=== PATIENT | male | born 1965 | race Caucasian/White ===

== ENCOUNTER 2019-03-16 08:50 | Day surgery (SDC) | payer MEDICAID ==
[~2019-03-16] VITALS: Ht 170.2 cm; Wt 105.0 kg
[~2019-03-16 08:50] MED LIST: SODIUM CHLORIDE 0.9% 1,000 ML ONE
[2019-03-16] MEDS ORDERED: SODIUM CHLORIDE 0.9% 1,000 ML IV ONE (09:00)
[2019-03-16] MEDS ORDERED: LIDOCAINE/PF 2% 5 ML VIAL INJ ONE (12:00)
[2019-03-16] MEDS ORDERED: PROPOFOL 1% 20 ML VIAL IVP ONE (12:00)
== END 2019-03-16 11:05 | disposition home or self-care (01) ==
LOC: SURGERY 08:50
PROVIDERS: ATTEND Internal Medicine Gastroenterology
DX: Z12.11 Encounter for screening for malignant neoplasm of colon (principal); K29.60 Other gastritis without bleeding; K44.9 Diaphragmatic hernia without obstruction or gangrene; K21.0 Gastro-esophageal reflux disease with esophagitis; B19.20 Unspecified viral hepatitis C without hepatic coma; E66.9 Obesity, unspecified; Z68.36 Body mass index [BMI] 36.0-36.9, adult; F43.10 Post-traumatic stress disorder, unspecified; Z87.19 Personal history of other diseases of the digestive system; Z98.49 Cataract extraction status, unspecified eye; F17.290 Nicotine dependence, other tobacco product, uncomplicated; Z79.899 Other long term (current) drug therapy
CPT/HCPCS: 45378; 43239; 88305; 88312; 88313; C1769; J2704; J3490; J7030

== ENCOUNTER 2020-02-24 15:41 | Emergency (ER) | payer MEDICAID ==
[~2020-02-24] VITALS: Ht 170.2 cm; Wt 104.5 kg
[2020-02-24] MEDS ORDERED: HYDR50CA9 PO (15:48)
[2020-02-24] MEDS ORDERED: VENL50TA44 PO (15:48)
[2020-02-24] MEDS ORDERED: MIRT-89 PO (15:48)
[2020-02-24] MEDS ORDERED: IBUPROFEN 400 MG TABLET PO ONE (19:15)
[2020-02-24 20:25] VITALS: BP 130/81
== END 2020-02-24 21:44 | disposition home or self-care (01) ==
LOC: EMS 15:41
DX: S92.354A Nondisplaced fracture of fifth metatarsal bone, right foot, initial encounter for closed fracture (principal); K21.9 Gastro-esophageal reflux disease without esophagitis; F17.210 Nicotine dependence, cigarettes, uncomplicated; X58.XXXA Exposure to other specified factors, initial encounter; Y93.89 Activity, other specified; Y92.89 Other specified places as the place of occurrence of the external cause; Y99.8 Other external cause status
CPT/HCPCS: 29515